=== PATIENT | male | born 1975 | race Caucasian/White ===

== ENCOUNTER 2018-11-13 10:24 | Inpatient (IN) | payer OTHER ==
[2018-11-13 11:27] VITALS: BMI 18.1
--- NOTE | 2018-11-13 12:04 | HP ---
COWS - Scale Resting Pulse: 0= [place] 80 or Below Sweatin= Chills/Flushing Restless Observation: 3= Extraneous Movement Pupil Size: 0= Normal to Room Light Bone or Joint Aches: 2= Severe Diffuse Aches Runny Nose/ Eye Tearin= Nasal Congestion GI Upset > 30mins: 2= Nausea/Diarrhea Tremor Observation: 1= Tremor [place], Not Seen Yawning Observation: 0= None Anxiety or Irritability: 1=Feels Anxious/Irritable Goose Flesh Skin: 0=Smooth Skin COWS Score: 11 CIWA Score - Admission Criteria OASAS Guidelines: Admission for Medically Managed Detox: Requires at least one of the followin. CIWA greater than 12 2. Seizures within the past 24 hours 3. Delirium tremens within the past 24 hours 4. Hallucinations within the past 24 hours 5. Acute intervention needed for co occurring medical disorder 6. Acute intervention needed for co occurring psychiatric disorder 7. Severe withdrawal that cannot be handled at a lower level of care (continued vomiting, continued diarrhea, abnormal vital signs) requiring intravenous medication and/or fluids 8. Admission [facility] Allergies/Adverse Reactions: Allergies Allergy/AdvReac Type Severity Reaction Status Date / Time No Known Allergies Allergy Verified 11/13/18 11:17 History of Present Illness: 43 y.o. male here requesting detox from opiate use , reports 1.5 bundles/ day ivdu and via inhalation , needles from exchange , denies sharing or re- using , denies abscess, OD " in the past " , latest use yesterday , current symptoms as above. tobacco : 1 ppd cannabis : 1 oz /day k2 - 1 oz cocaine : " not really " pmhx : hep c s/p tx Exam Limitations: No Limitations - Ebola screening Have you traveled outside of the country in the last 21 days: No (N) Have you had contact with anyone from an Ebola affected area: No Do you have a fever: No - Review of Systems Constitutional: See HPI EENT: reports: See HPI Respiratory: reports: No Symptoms reported Cardiac: reports: No Symptoms Reported GI: reports: See HPI : reports: No Symptoms Reported Musculoskeletal: reports: Muscle Pain Integumentary: reports: See HPI Neuro: reports: No Symptoms reported Endocrine: reports: No Symptoms Reported Psychiatric: reports: Orientated x3, Agitated, Anxious Patient History - Smoking Cessation Smoking history: Current every day smoker Have you smoked in the past 12 months: Yes Hx Chewing Tobacco Use: No Initiated information on smoking cessation: No - Substances abused Heroin Substance route: Inhalation Frequency: Daily Amount used: 1.5 bundle Age of first use: 16 Date of last use: 11/12/18 K2/Spice Substance route: Smoking Frequency: Daily Amount used: 1 gram Age of first use: 43 Date of last use: 11/12/18 Cocaine Substance route: Inhalation Frequency: 3-6 times per week Amount used: $20 Age of first use: 16 Date of last use: 11/12/18 Family Disease History - Family Disease History Family History: Denies Admission Physical Exam S - Vital Signs Vital Signs: Vital Signs - 24 hr 11/13/18 11/13/18 11:20 11:49 Temperature 97.2 F L 97.2 F L Pulse Rate 59 L 59 L Respiratory 18 18 Rate Blood Pressure 175/97 H 175/97 H - Physical General Appearance: Yes: Mild Distress, Anxious HEENTM: Yes: Hearing grossly Normal, Normocephalic, Normal Voice Respiratory: Yes: Lungs Clear, Normal Breath Sounds, No Respiratory Distress, No Accessory Muscle Use Neck: Yes: No masses,lesions,Nodules, Trachea in good position Cardiology: Yes: Regular Rhythm, Regular Rate, S1, S2 Abdominal: Yes: Non Tender, Soft Back: Yes: Normal Inspection Musculoskeletal: Yes: Gait Steady Extremities: Yes: Non-Tender Neurological: Yes: Fully Oriented, Alert, Motor Strength 5/5 Integumentary: Yes: Warm, Track [place] - Diagnostic (1) Opioid dependence Current Visit: Yes Status: Acute Qualifiers: Substance use status: in withdrawal Qualified Code(s): F11.23 - Opioid dependence with withdrawal (2) Cannabis dependence Current Visit: Yes Status: Chronic (3) Nicotine dependence Current Visit: Yes Status: Chronic Qualifiers: Nicotine product type: cigarettes (4) Inhalant dependence with other inhalant-induced disorder Current Visit: Yes Status: Chronic Breathalyzer - Breathalyzer Breathalyzer: 0 Urine Drug Screen - Test Device Lot number: [id number] Expiration date: 08/08/20 - Control Is test valid?: Yes - Results Drug screen NEGATIVE: No Urine drug screen results: THC-Marijuana, FEN-Fentanyl, MOP-Opiates, BZO- Benzodiazepines Inpatient Rehab Admission - Rehab Decision to Admit Inpatient rehab admission?: No
[2018-11-13] MEDS ORDERED: MAG HYDROX/AL HYDROX/SIMETH 30 ML UNIT-DOSE CUP PO PRN (12:06)
[2018-11-13] MEDS ORDERED: MENTHOL/PHENOL 1 EACH UD MM PRN (12:06)
[2018-11-13] MEDS ORDERED: ACETAMINOPHEN 325 MG TABLET (FP) PO PRN ×2 (12:06)
[2018-11-13] MEDS ORDERED: BISMUTH SUBSALICYLATE 262 MG/15 ML BTL PO PRN (12:06)
[2018-11-13] MEDS ORDERED: IBUPROFEN 400 MG TABLET (FP) PO PRN (12:06)
[2018-11-13] MEDS ORDERED: MAGNESIUM CITRATE 300 ML BOTTLE PO PRN (12:06)
[2018-11-13] MEDS ORDERED: MAGNESIUM HYDROX 2400MG/30ML ORAL SUSPENSION 30 ML CUP PO PRN (12:06)
[2018-11-13] MEDS ORDERED: NICOTINE POLACRILEX 2 MG GUM BUC PRN (12:06)
[2018-11-13] MEDS ORDERED: METHADONE HCL 10 MG TABLET (FOR DETOX USE ONLY) PO ONE (12:25)
[2018-11-13] MEDS: hydrOXYzine PAMOATE 25 MG CAPSULE (FP) PO PRN ×2 (12:48→18:54)
[2018-11-13] MEDS: cloNIDine HCL 0.1 MG TABLET PO PRN ×2 (12:48→20:17)
[2018-11-13] MEDS: METHOCARBAMOL 500 MG TABLET PO PRN (18:54)
[2018-11-13] MEDS: THIAMINE HCL 100 MG TABLET (FP) PO SCH (22:20)
[2018-11-14] MEDS: METHOCARBAMOL 500 MG TABLET PO PRN (05:52)
[2018-11-14] MEDS: hydrOXYzine PAMOATE 25 MG CAPSULE (FP) PO PRN (05:52)
[2018-11-14] MEDS: cloNIDine HCL 0.1 MG TABLET PO PRN ×2 (08:38→22:24)
[2018-11-14] MEDS ORDERED: METHADONE HCL 10 MG TABLET (FOR DETOX USE ONLY) ONE (09:00)
[2018-11-14] MEDS ORDERED: METHADONE HCL 5 MG TABLET (FOR DETOX USE ONLY) ONE (09:01)
[2018-11-14] MEDS: PRENATAL VITAMINS W/ FOLIC ACID TABLET (FP) PO SCH (09:02)
--- NOTE | 2018-11-14 09:12 | PN ---
[facility] CIWA - CIWA Score Nausea/Vomitin Muscle Tremors: 2 Anxiety: 3 Agitation: 3 Paroxysmal Sweats: 1-Minimal Palms Moist Orientation: 0-Oriented Tacttile Disturbances: 1-Very Mild Itch/Numbness Auditory Disturbances: 0-None Visual Disturbances: 0-None Headache: 2-Mild CIWA-Ar Total Score: 14 [facility] COWS - Scale Resting Pulse: 0= [place] 80 or Below Sweatin= Chills/Flushing Restless Observation: 1= Difficult to Sit Still Pupil Size: 1= Pupils >than Normal Bone or Joint Aches: 2= Severe Diffuse Aches Runny Nose/ Eye Tearin= Runny Nose/Eyes GI Upset > 30mins: 2= Nausea/Diarrhea Tremor Observation of Outstretched Hands: 2= Slight Tremor Visible Yawning Observation: 1= 1-2x During Session Anxiety or Irritability: 2=Irritable/Anxious Goose Flesh Skin: 0=Smooth Skin COWS Score: 14 [facility] Progress Note (SOAP) Subjective: alert,irritable,anxious,interrupted sleep,tremor,pain in the body and back Objective: 11/14/18 09:16 Vital Signs Temperature 98.1 F 11/14/18 06:39 Pulse Rate 58 L 11/14/18 06:39 Respiratory Rate 18 11/14/18 06:39 Blood Pressure 142/77 11/14/18 06:39 O2 Sat by Pulse Oximetry (%) 11/14/18 09:17 labs pending Assessment: 11/14/18 09:16 withdrawal symptom Plan: continue detox methadone regimen,ensure plus 120 mls po bid for poor oral intake
[2018-11-14] MEDS ORDERED: METHADONE (DETOX) 20 MG, METHADONE (DETOX) 5 MG PO ONE (10:00)
[2018-11-14 11:59] LABS: HEMOGLOBIN 12.2 GM/dL (11.7-16.9); MCH 27.8 pg (25.7-33.7); MEAN CELL VOLUME 84.2 fl (80-96); MEAN PLT VOLUME 8.5 fl (7.5-11.1); PLATELET COUNT 393 K/MM3 (134-434); RBC 4.39 M/mm3 (4.00-5.60); RDW 14.9 % (11.9-15.9); WHITE BLOOD COUNT 5.8 K/mm3 (4.0-10.0)
[2018-11-14 12:13] LABS: ALBUMIN 4.2 g/dl (3.4-5.0); BLOOD UREA NITROGEN 7.2 mg/dL (7-18); CALCIUM 9.4 mg/dL (8.5-10.1); CREATININE 0.8 mg/dL (0.55-1.3); POTASSIUM 4.1 mmol/L (3.5-5.1); TOT PROT 8.1 g/dl (6.4-8.2)
[2018-11-14 14:34] VITALS: PULSE 60
[2018-11-14] MEDS: diazePAM 5 MG TABLET PO PRN ×2 (14:34→19:02)
--- NOTE | 2018-11-14 17:27 | CONSULT ---
[facility] Psychiatric Consult - Data Date of interview: 11/14/18 Admission source: [facility] Identifying data: First admission to [facility] for this 43 y/o male self-referred for detoxification (alcohol, cocaine, cannabis/K2, opioid). Interviewd at [address] [place] [address]. Patient is single, fatyher of one, homeless, unemployed and supported on undisclosed means. Substance Abuse History: Discussed with patient. Mr Jones admits to an extending history of heroin, cocaine, K2 and alcohol use. Details in [facility] report as follows : Smoking Cessation. Smoking history: Current every day smoker. Have you smoked in the past 12 months: Yes. Hx Chewing Tobacco Use: No. Initiated information on smoking cessation: No. - Substances abused. Heroin. Substance route: Inhalation. Frequency: Daily. Amount used: 1.5 bundle. Age of first use: 16. Date of last use: 11/12/18. K2/Spice. Substance route: Smoking. Frequency: Daily. Amount used: 1 gram. Age of first use: 43. Date of last use: 11/12/18. Cocaine. Substance route: Inhalation. Frequency: 3-6 times per week. Amount used: $20. Age of first use : 16. Date of last use: 11/12/18 Medical History: Remarkable for hepatitis C. Psychiatric History: Patient endorses history of a distant psychiatric hospitalization at [facility] in the early . Diagnosed at the time with MDD and Anxiety Disorder. Mr Byrne reports total non-adherence with OPD care + psychotropic medications (poor recall of past medications). He indicates that he stopped going to [facility] for outpatient care (a month ago). " I am afraid to be without my medications ", a reference to wellbutrin, gabapentin, " celexa or zyprexa ". Patient denies history of suicide attempts. Physical/Sexual Abuse/Trauma History: Patient denies. Additional Comment: Urine drug screen results: THC-Marijuana, FEN-Fentanyl, MOP- Opiates, BZO-Benzodiazepines. Noted. Mental Status Exam - Mental Status Exam Alert and Oriented to: Time, Place, Person Cognitive Function: Good Patient Appearance: Unkempt, Disheveled Mood: Nervous, Withdrawn, Irritable Affect: Mood Congruent, Constricted Patient Behavior: Fatigued, Cooperative Speech Pattern: Clear Voice Loudness: Normal Thought Process: Goal Oriented Thought Disorder: Not Present Hallucinations: Denies Suicidal Ideation: Denies Homicidal Ideation: Denies Insight/Judgement: Poor Sleep: Poorly, Difficulty falling asleep Appetite: Good Muscle strength/Tone: Normal Gait/Station: Normal Psychiatric Findings - Problem List ([place] 1, 2,3) (1) Opioid dependence Current Visit: Yes Status: Chronic Qualifiers: Substance use status: in withdrawal Qualified Code(s): F11.23 - Opioid dependence with withdrawal (2) Cannabis dependence Current Visit: Yes Status: Chronic (3) Inhalant dependence with other inhalant-induced disorder Current Visit: Yes Status: Chronic (4) Nicotine dependence Current Visit: Yes Status: Chronic Qualifiers: Nicotine product type: cigarettes (5) Substance induced mood disorder Current Visit: Yes Status: Chronic (6) Insomnia Current Visit: Yes Status: Chronic (7) Non-compliance Current Visit: Yes Status: Chronic - Initial Treatment Plan Initial Treatment Plan: Psychoeducation. Sleep hygiene. Detoxification. Support. AA/NA meetings. [phone] : no medication on file. Observation.
[2018-11-14 17:53] VITALS: BP 124/74; TEMP 98.1
[2018-11-14] MEDS: MELATONIN 5 MG TABLETS PO PRN (22:23)
[2018-11-14] MEDS: THIAMINE HCL 100 MG TABLET (FP) PO SCH (22:24)
[2018-11-15] MEDS: MELATONIN 5 MG TABLETS PO PRN (02:37)
[2018-11-15] MEDS: hydrOXYzine PAMOATE 25 MG CAPSULE (FP) PO PRN (02:37)
[2018-11-15] MEDS ORDERED: METHADONE HCL 10 MG TABLET (FOR DETOX USE ONLY) PO ONE (10:00)
[2018-11-15] MEDS: PRENATAL VITAMINS W/ FOLIC ACID TABLET (FP) PO SCH (10:28)
[2018-11-15] MEDS: diazePAM 5 MG TABLET PO PRN (10:32)
[2018-11-15] MEDS: METHOCARBAMOL 500 MG TABLET PO PRN (10:32)
--- NOTE | 2018-11-15 10:35 | PN ---
[facility] CIWA - CIWA Score Nausea/Vomitin-No Nausea/No Vomiting Muscle Tremors: None Anxiety: 3 Agitation: 3 Paroxysmal Sweats: 3 Orientation: 0-Oriented Tacttile Disturbances: 0-None Auditory Disturbances: 0-None Visual Disturbances: 0-None Headache: 2-Mild CIWA-Ar Total Score: 11 S COWS - Scale Resting Pulse: 0= [place] 80 or Below Sweatin= Beads of Sweat on Face Restless Observation: 1= Difficult to Sit Still Pupil Size: 0= Normal to Room Light Bone or Joint Aches: 2= Severe Diffuse Aches Runny Nose/ Eye Tearin= None GI Upset > 30mins: 0= None Tremor Observation of Outstretched Hands: 0= None Yawning Observation: 1= 1-2x During Session Anxiety or Irritability: 2=Irritable/Anxious Goose Flesh Skin: 0=Smooth Skin COWS Score: 9 [facility] Progress Note (SOAP) Subjective: c/o anxiety, irritability, sweats, headache, and interrupted sleep. Objective: 11/15/18 10:33 Vital Signs 11/15/18 03:30 Respiratory 18 Rate Lab Results WBC 5.8 K/mm3 (4.0-10.0) 11/14/18 08:30 RBC 4.39 M/mm3 (4.00-5.60) 11/14/18 08:30 Hgb 12.2 GM/dL (11.7-16.9) 11/14/18 08:30 Hct 37.0 % (35.4-49) 11/14/18 08:30 MCV 84.2 fl (80-96) 11/14/18 08:30 MCHC 33.0 g/dl (32.0-35.9) 11/14/18 08:30 RDW 14.9 % (11.9-15.9) 11/14/18 08:30 Plt Count 393 K/MM3 (134-434) 11/14/18 08:30 Sodium 139 mmol/L (136-145) 11/14/18 08:30 Potassium 4.1 mmol/L (3.5-5.1) 11/14/18 08:30 Chloride 98 mmol/L (98-107) 11/14/18 08:30 Carbon Dioxide 28 mmol/L (21-32) 11/14/18 08:30 Anion Gap 13 MMOL/L (8-16) 11/14/18 08:30 BUN 7.2 mg/dL (7-18) 11/14/18 08:30 Creatinine 0.8 mg/dL (0.55-1.3) 11/14/18 08:30 Random Glucose 87 mg/dL (74-106) 11/14/18 08:30 Calcium 9.4 mg/dL (8.5-10.1) 11/14/18 08:30 Pt refused vital signs. Labs noted. Assessment: 11/15/18 10:34 AOX3, in no acute distress. Full ROM, ambulating in the unit. Withdrawal symptoms. Plan: continue detox. Increase fluids.
--- NOTE | 2018-11-15 13:29 | DS ---
[facility] Detox Discharge Summary Admission Date: 11/13/18 Discharge Date: 11/15/18 (Left AMA) - History Present History: Cocaine Dependence, Opioid Dependence, Sedative Dependence, K 2 Additional Comments: Pt left AMA. Pt did not complete his detox protocol. Pt states, "i have to go and take care of something important". An attempt to let pt stay and complete his protocol failed. Pt is encouraged to follow-up with an outpatient CD program and also to follow-up with his PMD. Pt was adamant about the information given. Pertinent Past History: H/o cocaine, heroin, and cannabis use disorder. - Physical Exam Results Vital Signs: Vital Signs Temperature 98.1 F 11/14/18 17:53 Pulse Rate 60 11/14/18 17:53 Respiratory Rate 18 11/15/18 03:30 Blood Pressure 124/74 11/14/18 17:53 O2 Sat by Pulse Oximetry (%) Lab Results WBC 5.8 K/mm3 (4.0-10.0) 11/14/18 08:30 RBC 4.39 M/mm3 (4.00-5.60) 11/14/18 08:30 Hgb 12.2 GM/dL (11.7-16.9) 11/14/18 08:30 Hct 37.0 % (35.4-49) 11/14/18 08:30 MCV 84.2 fl (80-96) 11/14/18 08:30 MCHC 33.0 g/dl (32.0-35.9) 11/14/18 08:30 RDW 14.9 % (11.9-15.9) 11/14/18 08:30 Plt Count 393 K/MM3 (134-434) 11/14/18 08:30 Sodium 139 mmol/L (136-145) 11/14/18 08:30 Potassium 4.1 mmol/L (3.5-5.1) 11/14/18 08:30 Chloride 98 mmol/L (98-107) 11/14/18 08:30 Carbon Dioxide 28 mmol/L (21-32) 11/14/18 08:30 Anion Gap 13 MMOL/L (8-16) 11/14/18 08:30 BUN 7.2 mg/dL (7-18) 11/14/18 08:30 Creatinine 0.8 mg/dL (0.55-1.3) 11/14/18 08:30 Random Glucose 87 mg/dL (74-106) 11/14/18 08:30 Calcium 9.4 mg/dL (8.5-10.1) 11/14/18 08:30 Labs noted. Pertinent Admission Physical Exam Findings: withdrawal symptoms. - Treatment Hospital Course: Detox Protocol Followed - Medication Discharge Medications: Ambulatory Orders NK [No Known Home Medication] 11/13/18 - Diagnosis (1) Cannabis dependence Status: Chronic (2) Inhalant dependence with other inhalant-induced disorder Status: Chronic (3) Nicotine dependence Status: Chronic Qualifiers: Nicotine product type: cigarettes (4) Opioid dependence Status: Chronic Qualifiers: Substance use status: in withdrawal Qualified Code(s): F11.23 - Opioid dependence with withdrawal - AMA Did Patient Leave Against Medical Advice: Yes
[2018-11-16] MEDS ORDERED: METHADONE (DETOX) 10 MG, METHADONE (DETOX) 5 MG PO ONE (10:00)
[2018-11-17] MEDS ORDERED: METHADONE HCL 10 MG TABLET (FOR DETOX USE ONLY) PO ONE (10:00)
[2018-11-18] MEDS ORDERED: METHADONE HCL 5 MG TABLET (FOR DETOX USE ONLY) PO ONE (06:00)
== END 2018-11-15 11:15 | disposition left against medical advice (07) | DRG 770 ==
LOC: YASAS 10:24 → Y6N 12:23
PROVIDERS: ADMIT Surgery; ATTEND Surgery
PROC: HZ2ZZZZ Detoxification Services for Substance Abuse Treatment (ICD-10-PCS; principal; 2018-11-13)
DX: F11.23 Opioid dependence with withdrawal (principal); F12.20 Cannabis dependence, uncomplicated; F18.98 Inhalant use, unspecified with other inhalant-induced disorders; F17.210 Nicotine dependence, cigarettes, uncomplicated; F19.24 Other psychoactive substance dependence with psychoactive substance-induced mood disorder; G47.00 Insomnia, unspecified; Z91.19 Patient's noncompliance with other medical treatment and regimen
CPT/HCPCS: 36415; 80053; 85027; 86480; 86593; J0735